=== PATIENT | male | born 1950 | race Caucasian/White ===

== ENCOUNTER 2017-05-01 16:33 | Emergency (ER) | payer OTHER, BC ==
[~2017-05-01] VITALS: Ht 185.4 cm; Wt 112.8 kg
[2017-05-01] MEDS ORDERED: ASPIRIN 81 LOW81 MG (16:53)
[2017-05-01] MEDS ORDERED: ZOCOR20 M1 PO (16:53)
[2017-05-01] MEDS ORDERED: SAW PALMETT4 (16:53)
[2017-05-01] MEDS ORDERED: MULT VITAMI1 PO (16:54)
[2017-05-01] MEDS ORDERED: FISH OIL1 CAP (16:54)
[2017-05-01] MEDS ORDERED: BACTRIM DS1 TAB PO (17:59)
[2017-05-01 18:20] VITALS: BP 144/74
== END 2017-05-01 18:20 | disposition home or self-care (01) | DRG 605 ==
LOC: ED 16:33
PROC: 0HQCXZZ Repair Left Upper Arm Skin, External Approach (ICD-10-PCS; principal; 2017-05-01)
DX: S51.812A Laceration without foreign body of left forearm, initial encounter (principal); W31.2XXA Contact with powered woodworking and forming machines, initial encounter; Y93.H3 Activity, building and construction; Y92.89 Other specified places as the place of occurrence of the external cause

== ENCOUNTER 2017-05-11 13:56 | Emergency (ER) | payer OTHER, BC ==
[~2017-05-11] VITALS: Ht 185.4 cm; Wt 107.0 kg
[~2017-05-11 13:56] MED LIST: ASPIRIN 81 LOW81 MG PO; BACTRIM DS1 TAB PO; FISH OIL1 CAP PO; MULT VITAMI1 PO; SAW PALMETT4 PO; ZOCOR20 M1 PO
[2017-05-11] MEDS ORDERED: DOXYCYC MONO100 M1 PO (15:08)
[2017-05-11 15:39] VITALS: BP 148/88
== END 2017-05-11 15:35 | disposition home or self-care (01) | DRG 950 ==
LOC: ED 13:56
DX: S51.812D Laceration without foreign body of left forearm, subsequent encounter (principal)